=== PATIENT | male | born 1990 | race Caucasian/White ===

== ENCOUNTER 2019-05-24 14:36 | Emergency (ER) | payer SELFPAY ==
[~2019-05-24] VITALS: Ht 167.6 cm; Wt 53.5 kg
[2019-05-24 14:48] VITALS: BP 114/63; Ht 167.6 cm; Wt 53.5 kg
== END 2019-05-24 16:15 | disposition home or self-care (01) ==
LOC: ED 14:36
DX: S16.1XXA Strain of muscle, fascia and tendon at neck level, initial encounter (principal); S09.8XXA Other specified injuries of head, initial encounter; Y04.8XXA Assault by other bodily force, initial encounter; Y93.89 Activity, other specified; Y92.89 Other specified places as the place of occurrence of the external cause; Y99.8 Other external cause status